=== PATIENT | female | born 1965 | race Caucasian/White ===

== ENCOUNTER 2017-12-08 15:27 | Emergency (ER) | payer BC ==
[~2017-12-08] VITALS: Ht 167.6 cm; Wt 72.7 kg
[~2017-12-08 15:27] MED LIST changes: -LEXAPRO20 MG PO; -MASON NATURAL2000 IU PO; -MAXIPIME2 GM IJ; -OCUVITE1 TA1 PO; -VANCOCIN HCL1 GM IV
[2017-12-08 15:29] VITALS: TEMP 97.9
[2017-12-08] MEDS ORDERED: LEXAPRO20 MG PO (15:54)
[2017-12-08 16:46] LABS: BASO # 0.1 (0.0-0.2); BASO % 0.6 % (0.0-2.0); EOS # 0.2 (0.0-0.7); EOS % 2.8 % (0-4.0); GRAN # 5.2 (1.4-6.5); GRAN % 67.3 % (42.2-75.2); HEMATOCRIT 41.5 % (37.0-47.0); HEMOGLOBIN 13.6 g/dl (12.5-16.0); LYMPH # 1.6 (1.2-3.4); LYMPH % 20.5 % (20.0-51.0); MEAN CELL VOLUME 91 fl (80.0-100.0); MEAN CORPUSCULAR HEMOGLOBIN 30 pg (27.0-31.0); MEAN CORPUSCULAR HGB CONC 33 g/dl (33.0-37.0); MEAN PLATELET VOLUME 9.8 fl (7.4-10.4); MONO # 0.7 (0.1-0.6); MONO % 8.5 % (1.7-9.3); PLATELET COUNT 215 K/mm3 (130-400); RED BLOOD COUNT 4.55 M/mm3 (4.10-5.30)
[2017-12-08 17:10] LABS: ALBUMIN 4.2 gm/dL (3.5-5.0); BILIRUBIN,TOTAL 0.7 mg/dL (0.0-1.0); CALCIUM 9.5 mg/dL (8.4-10.2); CREATININE, serum 0.59 mg/dL (0.52-1.25); TOTAL PROTEIN 7.3 gm/dL (6.4-8.2)
[2017-12-08 19:00] VITALS: BP 111/76; PULSE 63
[2017-12-09] MEDS ORDERED: MASON NATURAL2000 IU PO (09:45)
[2017-12-09] MEDS ORDERED: OCUVITE1 TA1 PO (09:47)
== END 2017-12-08 19:00 | disposition home or self-care (01) ==
LOC: COL.ER 15:27
PROVIDERS: Emergency Medicine
DX: B35.4 Tinea corporis (principal); L03.116 Cellulitis of left lower limb
CPT/HCPCS: J0692; J3370; J7050

== ENCOUNTER → 2017-12-08 | Outpatient (CLI) | payer BC ==
[~2017-12-08] MED LIST: LEXAPRO20 MG PO; MASON NATURAL2000 IU PO; MAXIPIME2 GM IJ; OCUVITE1 TA1 PO; VANCOCIN HCL1 GM IV; ZOLOFT 100MG100 MG PO
[2017-12-08 14:17] LABS: BASO % 0.5 % (0.0-2.0); EOS # 0.2 (0.0-0.7); EOS % 2.9 % (0-4.0); GRAN # 4.1 (1.4-6.5); GRAN % 62.5 % (42.2-75.2); HEMATOCRIT 40.1 % (37.0-47.0); HEMOGLOBIN 13.9 g/dl (12.5-16.0); LYMPH # 1.7 (1.2-3.4); LYMPH % 25.8 % (20.0-51.0); MEAN CELL VOLUME 87 fl (80.0-100.0); MEAN CORPUSCULAR HEMOGLOBIN 30 pg (27.0-31.0); MEAN CORPUSCULAR HGB CONC 35 g/dl (33.0-37.0); MEAN PLATELET VOLUME 10.3 fl (7.4-10.4); MONO # 0.5 (0.1-0.6); PLATELET COUNT 231 K/mm3 (130-400); RED BLOOD COUNT 4.61 M/mm3 (4.10-5.30); REDCELL DISTRIBUTION WIDTH-CV 13.1 % (11.5-14.5)
[2017-12-08 14:26] LABS: ALBUMIN 4.4 gm/dL (3.5-5.0); BILIRUBIN,TOTAL 0.8 mg/dL (0.0-1.0); CALCIUM 9.7 mg/dL (8.4-10.2); CREATININE, serum 0.62 mg/dL (0.52-1.25); POTASSIUM 4.4 mmol/L (3.4-5.0); TOTAL PROTEIN 7.4 gm/dL (6.4-8.2)
== END ==
LOC: ZCOL.LAB 14:12
PROVIDERS: Nurse Practitioner Family
DX: L03.116 Cellulitis of left lower limb (principal)

== ENCOUNTER 2017-12-09 20:52 | Outpatient (RCR) | payer BC ==
[~2017-12-09] VITALS: Ht 167.6 cm; Wt 73.0 kg
[2017-12-09 09:30] VITALS: BP 117/70; PULSE 60; TEMP 98.7
[~2017-12-09 20:52] MED LIST changes: +LEXAPRO20 MG PO; +MASON NATURAL2000 IU PO; +OCUVITE1 TA1 PO
[2017-12-10 07:41] VITALS: BP 110/66; PULSE 57; TEMP 98.3
[2017-12-10 18:11] VITALS: BP 112/74; PULSE 66; TEMP 97.8
[2017-12-11 07:30] VITALS: BP 110/87; PULSE 70; TEMP 97.7
[2017-12-12 07:30] VITALS: BP 108/74; PULSE 65; TEMP 97.8
[2017-12-13] MEDS ORDERED: VANCOCIN HCL1 GM IV (08:00)
[2017-12-13] MEDS ORDERED: MAXIPIME2 GM IJ (08:01)
[2017-12-13 09:24] VITALS: BP 110/72; PULSE 75; TEMP 98
[2017-12-13 18:50] VITALS: BP 98/70; PULSE 72; TEMP 98.6
[2017-12-14 06:37] VITALS: BP 150/79; PULSE 68; TEMP 98
[2017-12-14 17:57] VITALS: BP 111/65; PULSE 74; TEMP 98.3
[2017-12-15 06:33] VITALS: BP 110/71; PULSE 74; TEMP 97.8
[2017-12-15] MEDS ORDERED: ECONAZOLE NITRATE11 TOP (06:36)
[2017-12-15] MEDS ORDERED: BACTROBAN NASA0.9 GM NS (06:36)
[2017-12-15 18:04] VITALS: BP 118/71; PULSE 72; TEMP 98.1
[2017-12-16 07:37] VITALS: BP 112/66; PULSE 68; TEMP 98.6
[2017-12-16 18:41] VITALS: BP 101/61; PULSE 72; TEMP 98.6
[2017-12-17 07:39] VITALS: BP 105/63; PULSE 80; TEMP 98.2
[2017-12-17 18:08] VITALS: BP 104/69; PULSE 78; TEMP 99.2
[2017-12-18 07:32] VITALS: BP 99/65; PULSE 75; TEMP 98
[2017-12-20 10:24] VITALS: BP 119/78; PULSE 70; TEMP 98.1
== END 2017-12-20 14:09 | disposition home or self-care (01) ==
LOC: EUO 12-10 07:00
DX: L03.116 Cellulitis of left lower limb (principal); B35.4 Tinea corporis; Z45.2 Encounter for adjustment and management of vascular access device; Z95.9 Presence of cardiac and vascular implant and graft, unspecified
CPT/HCPCS: C1751; C1894; J0692; J3370; J7050

== ENCOUNTER → 2018-10-27 | Outpatient (CLI) | payer BC ==
[~2018-10-27] MED LIST changes: +BACTROBAN NASA0.9 GM NS; +ECONAZOLE NITRATE11 TOP; +MAXIPIME2 GM IJ; +VANCOCIN HCL1 GM IV
== END ==
LOC: MC.RAD 07:39
DX: Z12.31 Encounter for screening mammogram for malignant neoplasm of breast (principal)